=== PATIENT | female | born 1995 | race Caucasian/White ===

== ENCOUNTER 2018-07-16 18:06 | Emergency (ER) | payer MEDICAID, OTHER ==
[~2018-07-16] VITALS: Ht 160 cm; Wt 53.0 kg
[2018-07-16 18:22] VITALS: BP 133/82
[2018-07-16] MEDS ORDERED: TETanus/Pertussis (Acell)/Diphther VAC/PF (Tdap-Adult) 0.5ml syringe IM ONE (19:35)
[2018-07-16] MEDS ORDERED: LIDOcaine 1.5% w/epinephrine 1:200,000 5ml ampul IJ ONE (19:35)
== END 2018-07-16 20:10 | disposition home or self-care (01) ==
LOC: ER 18:08
DX: T16.1XXA Foreign body in right ear, initial encounter (principal); Y92.9 Unspecified place or not applicable
CPT/HCPCS: 99284; A6449; J3490

== ENCOUNTER 2018-11-29 12:20 | Emergency (ER) | payer BC, MEDICAID ==
[~2018-11-29] VITALS: Ht 160 cm; Wt 51.5 kg
[2018-11-29 12:37] VITALS: BP 126/80
[2018-11-29 13:17] LABS: URINE HCG NEGATIVE (NEG)
[2018-11-29 13:18] LABS: CLARITY,URINE CLOUDY (Clear); COLOR,URINE AMBER (Yellow); GLUCOSE, URINE NEGATIVE (Neg); KETONES,URINE TRACE mg/dl (Neg); NITRITES, URINE NEGATIVE (Neg); OCCULT BLOOD,URINE LARGE (Neg); PROTEIN,URINE 100 mg/dl (Neg); UA COLLECTION TYPE CLN CATCH MIDSTREAM
[2018-11-29 13:19] LABS: LEUKOCYTE ESTERASE ,URINE MODERATE (Neg)
[2018-11-29 13:34] LABS: BACTERIA,URINE 3+ /HPF (Neg); MUCUS STRANDS FEW /LPF (Neg); SQUAMOUS EPITHELIAL CELL,UR MANY /LPF (FEW)
[2018-11-29] MEDS ORDERED: BENZ-38 PO (13:40)
[2018-11-29] MEDS ORDERED: GUAI473S11 PO (13:40)
== END 2018-11-29 14:36 | disposition home or self-care (01) ==
LOC: ER 12:20
DX: R05 Cough (principal); N91.2 Amenorrhea, unspecified; Z79.899 Other long term (current) drug therapy
CPT/HCPCS: 81001; 81025; 99283

== ENCOUNTER 2019-01-23 23:47 | Emergency (ER) | payer BC, MEDICAID, OTHER ==
[~2019-01-23] VITALS: Ht 160 cm; Wt 55.4 kg
[2019-01-23 23:51] VITALS: BP 127/80
--- NOTE | 2019-01-24 01:05 | NUR ---
DR ZUNIGA AT BEDSIDE WITH PT
[2019-01-24] MEDS ORDERED: ibuprofen tablet 400 MG TABLET PO ONE (01:10)
== END 2019-01-24 01:23 | disposition home or self-care (01) ==
LOC: ER 23:48
DX: S50.12XA Contusion of left forearm, initial encounter (principal); M25.562 Pain in left knee; W01.0XXA Fall on same level from slipping, tripping and stumbling without subsequent striking against object, initial encounter; Y93.89 Activity, other specified; Y92.89 Other specified places as the place of occurrence of the external cause; Y99.8 Other external cause status
CPT/HCPCS: 99282

== ENCOUNTER 2020-01-10 12:36 | Emergency (ER) | payer MEDICAID, OTHER ==
[~2020-01-10] VITALS: Ht 160 cm; Wt 64.5 kg
[2020-01-10 13:00] VITALS: BP 132/83
[2020-01-10 13:46] LABS: BASOPHILS # (AUTO) 0.2 X10'3 (0-0.2); BASOPHILS % (AUTO) 1.6 % (0-1); EOSINOPHILS # (AUTO) 0.3 X10'3 (0-0.9); EOSINOPHILS % (AUTO) 2.8 % (0-6); HEMATOCRIT 38.4 % (35.0-45.0); LYMPHOCYTES % (AUTO) 21.1 % (21-51); MEAN CORPUSCULAR HEMOGLOBIN 29.3 PG (27.0-31.0); MEAN CORPUSCULAR HGB CONC 33.9 g/dL (33.0-36.5); MEAN CORPUSCULAR VOLUME 86.4 FL (78-98); MEAN PLATELET VOLUME 7.4 FL (7.4-10.4); MONOCYTES # (AUTO) 0.8 X10'3 (0-0.9); MONOCYTES % (AUTO) 8.1 % (2-12); NEUTROPHILS # (AUTO) 6.3 X10'3 (1.8-7.7); NEUTROPHILS % (AUTO) 66.4 % (42-75); PLATELET COUNT 341 X10'3 (140-440); RED BLOOD COUNT 4.44 X10'6 (4.20-5.60); RED CELL DISTRIBUTION WIDTH 14.5 % (11.5-14.5); WHITE BLOOD COUNT 9.5 X10'3 (4.5-11.0)
[2020-01-10 14:03] LABS: ALANINE AMINOTRANSFERASE 22 U/L (12-78); ALBUMIN 3.9 G/DL (3.4-5.0); ALKALINE PHOSPHATASE 80 IU/L (46-116); ANION GAP 6 (8-16); ASPARTATE AMINO TRANSFERASE 19 U/L (10-37); BILIRUBIN,TOTAL 0.4 MG/DL (0.1-1.0); BLOOD UREA NITROGEN 9 MG/DL (7-18); CHLORIDE 108 MMOL/L (99-107); CREATININE 0.75 MG/DL (0.40-0.90); GLUCOSE 92 MG/DL (70-104); LIPASE 102 U/L (73-393); SODIUM 140 MMOL/L (135-145); TOTAL CARBON DIOXIDE 26.2 MMOL/L (24-32); TOTAL PROTEIN 7.8 G/DL (6.4-8.2); eGFR > 90 ML/MIN
[2020-01-10 14:14] LABS: CLARITY,URINE CLEAR (Clear); COLOR,URINE YELLOW (Yellow); GLUCOSE, URINE NEGATIVE (Neg); KETONES,URINE NEGATIVE (Neg); LEUKOCYTE ESTERASE ,URINE NEGATIVE (Neg); NITRITES, URINE NEGATIVE (Neg); OCCULT BLOOD,URINE NEGATIVE (Neg); PROTEIN,URINE NEGATIVE (Neg); URINE HCG NEGATIVE (NEG); UROBILINOGEN,URINE 0.2 E.U/dL (0.2-1.0)
[2020-01-10 14:15] LABS: UA COLLECTION TYPE CLN CATCH MIDSTREAM
[2020-01-10] MEDS ORDERED: ONDA4TAB6 PO (14:42)
[2020-01-10] MEDS ORDERED: FAMO40TA58 PO (14:42)
== END 2020-01-10 14:54 | disposition home or self-care (01) ==
LOC: ER 12:37
DX: R10.31 Right lower quadrant pain (principal); R10.32 Left lower quadrant pain; R10.12 Left upper quadrant pain; Z79.899 Other long term (current) drug therapy
CPT/HCPCS: 36415; 80053; 81003; 81025; 83690; 85025; 99283

== ENCOUNTER 2020-02-08 23:11 | Emergency (ER) | payer MEDICAID ==
[~2020-02-08] VITALS: Ht 160 cm; Wt 64.5 kg
[~2020-02-08 23:11] MED LIST: FAMO40TA58 PO; ONDA4TAB6 PO
[2020-02-09] MEDS ORDERED: LIDOcaine 1% W/epiNEPHrine 1:200,000 10ml vial IJ ONE (00:55)
[2020-02-09 01:18] VITALS: BP 120/65
== END 2020-02-09 01:18 | disposition home or self-care (01) ==
LOC: ER 23:11
DX: S01.01XA Laceration without foreign body of scalp, initial encounter (principal); Z79.899 Other long term (current) drug therapy; W22.8XXA Striking against or struck by other objects, initial encounter; Y93.89 Activity, other specified; Y92.89 Other specified places as the place of occurrence of the external cause; Y99.8 Other external cause status
CPT/HCPCS: 12001; 12011; 99282

== ENCOUNTER 2020-02-18 13:27 | Emergency (ER) | payer MEDICAID ==
[~2020-02-18] VITALS: Ht 160 cm; Wt 70.0 kg
[2020-02-18 14:06] VITALS: BP 121/74
== END 2020-02-18 14:13 | disposition home or self-care (01) ==
LOC: ER 13:28
DX: S01.01XD Laceration without foreign body of scalp, subsequent encounter (principal); Z79.899 Other long term (current) drug therapy; W22.8XXD Striking against or struck by other objects, subsequent encounter
CPT/HCPCS: 99281

== ENCOUNTER 2020-11-23 14:13 | Emergency (ER) | payer MEDICAID ==
[~2020-11-23] VITALS: Ht 160 cm; Wt 66.0 kg
[2020-11-23] MEDS ORDERED: ibuprofen tablet 400 MG TABLET PO ONE (14:30)
[2020-11-23] MEDS ORDERED: acetaminophen 325mg tablet PO ONE (14:30)
[2020-11-23 15:08] VITALS: BP 119/82
--- NOTE | 2020-11-23 15:12 | NUR ---
Vas U/S at bedside to do exam
== END 2020-11-23 16:06 | disposition home or self-care (01) ==
LOC: ER 14:13
DX: M76.31 Iliotibial band syndrome, right leg (principal); M79.604 Pain in right leg; Z79.899 Other long term (current) drug therapy
CPT/HCPCS: 93971; 99284

== ENCOUNTER 2021-04-30 15:34 | Emergency (ER) | payer MEDICAID ==
[~2021-04-30] VITALS: Ht 160 cm; Wt 74.9 kg
[2021-04-30 15:42] VITALS: BP 123/84
== END 2021-04-30 16:50 | disposition home or self-care (01) ==
LOC: ER 15:35
DX: S76.112A Strain of left quadriceps muscle, fascia and tendon, initial encounter (principal); S83.92XA Sprain of unspecified site of left knee, initial encounter; M79.652 Pain in left thigh; Z79.899 Other long term (current) drug therapy; X58.XXXA Exposure to other specified factors, initial encounter; Y93.89 Activity, other specified; Y92.89 Other specified places as the place of occurrence of the external cause; Y99.8 Other external cause status
CPT/HCPCS: 99282

== ENCOUNTER 2021-06-05 17:05 | Emergency (ER) | payer MEDICAID ==
[~2021-06-05] VITALS: Ht 160 cm; Wt 73.1 kg
[2021-06-05 17:14] VITALS: BP 114/69
[2021-06-05] MEDS ORDERED: ketorolac tromethamine 15mg/ml inj. IM ONE (22:15)
[2021-06-05] MEDS ORDERED: HYDR-3965 PO (22:16)
== END 2021-06-05 22:42 | disposition home or self-care (01) ==
LOC: ER 17:06
DX: M25.562 Pain in left knee (principal); R22.42 Localized swelling, mass and lump, left lower limb; Z79.899 Other long term (current) drug therapy
CPT/HCPCS: 29505; 73564; 96372; 99283; J1885

== ENCOUNTER 2023-02-14 16:44 | Emergency (ER) | payer BC, MEDICAID ==
[~2023-02-14] VITALS: Ht 160 cm; Wt 59.0 kg
[2023-02-14 16:50] VITALS: BP 129/78
== END 2023-02-14 18:55 | disposition home or self-care (01) ==
LOC: ER 16:44
DX: S69.91XA Unspecified injury of right wrist, hand and finger(s), initial encounter (principal); Z79.899 Other long term (current) drug therapy; X58.XXXA Exposure to other specified factors, initial encounter; Y93.89 Activity, other specified; Y92.89 Other specified places as the place of occurrence of the external cause; Y99.8 Other external cause status
CPT/HCPCS: 29125; 73130; 99283

== ENCOUNTER 2023-05-01 07:08 | Emergency (ER) | payer BC, MEDICAID ==
[~2023-05-01] VITALS: Ht 160 cm; Wt 60.3 kg
[2023-05-01 07:16] VITALS: BP 117/76
== END 2023-05-01 08:55 | disposition home or self-care (01) ==
LOC: ER 07:08
DX: Z00.00 Encounter for general adult medical examination without abnormal findings (principal); Z79.899 Other long term (current) drug therapy
CPT/HCPCS: 99281

== ENCOUNTER 2023-05-07 14:37 | Emergency (ER) | payer BC, MEDICAID ==
[~2023-05-07] VITALS: Ht 157.5 cm; Wt 60.3 kg
[2023-05-07 14:48] VITALS: BP 126/80
== END 2023-05-07 15:01 | disposition home or self-care (01) ==
LOC: ER 14:37
DX: R21 Rash and other nonspecific skin eruption (principal); R20.8 Other disturbances of skin sensation
CPT/HCPCS: 99281

== ENCOUNTER 2023-08-17 22:24 | Emergency (ER) | payer BC, MEDICAID ==
[~2023-08-17] VITALS: Ht 157.5 cm; Wt 66.6 kg
[2023-08-17 22:27] VITALS: BP 121/71; PULSE 103; RESP 18; TEMP 98.6; O2SAT 95
== END 2023-08-18 01:28 | disposition home or self-care (01) ==
LOC: ER 22:25
DX: S63.612A Unspecified sprain of right middle finger, initial encounter (principal); Z79.899 Other long term (current) drug therapy; X50.1XXA Overexertion from prolonged static or awkward postures, initial encounter; Y93.89 Activity, other specified; Y92.89 Other specified places as the place of occurrence of the external cause; Y99.8 Other external cause status
CPT/HCPCS: 73140; 99283